=== PATIENT | male | born 1990 | race Two or more races ===

== ENCOUNTER 2025-01-03 13:31 | Emergency (ER) | payer MEDICAID, OTHER ==
[~2025-01-03] VITALS: Ht 175.3 cm; Wt 109.0 kg
--- NOTE | 2025-01-03 14:13 | ED.PDOC ---
History of Present Illness HPI Comments 34-year-old male brought in by EMS for evaluation of near syncope. 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 He was evaluated by a co-worker, who gave him some liquid IV to drank. He states he transiently felt better, h owever he became anxious and still felt somewhat lightheaded, so went across the street to the fire station for further evaluation. At the fire station, his blood pressure was reportedly in the low 100s over 60s, and he appeared pale. EMS administered a L of IV fluids, which improved his blood pressure to 122/71. On arrival to ER, patient states he feels anxious, however he is no longer feeling lightheaded. He denies any vision changes, focal weakness, recent illness, shortness of breath or chest pain. Chief Complaint: Syncope Time Seen by MD: 13:40 Reviewed Notes: Medications, Allergies Allergies: Coded Allergies: NO KNOWN ALLERGIES (Unverified , 01/03/25) Information Source: Patient Mode of Arrival: EMS Severity: Moderate Timing: Minutes Duration: Since onset Prehospital treatment: 12 Lead EKG, Adoption Social Worker, IVF Past Medical History PAST MEDICAL HISTORY: Anxiety Surgical History: Denies all surgeries Family History Family History: Reviewed,noncontributory to illness Social History Smoker: Other (Vapes) Alcohol: Denies ETOH Use Drugs: Denies Drug Use Lives In: Home Constitutional: denies: chills, diaphoresis, fatigue, fever, malaise, sweats, weakness, others EENTM: denies: blurred vision, double vision, ear bleeding, ear discharge, ear drainage, ear pain, ear ringing, eye pain, eye redness, hearing loss, mouth pain, mouth swelling, nasal discharge, nose bleeding, nose congestion, nose pain, photophobia, tearing, throat pain, throat swelling, voice changes, others Respiratory: denies: cough, hemoptysis, orthopnea, SOB at rest, shortness of breath, SOB with excertion, stridor, wheezing, others Cardiovascular: reports: syncope; denies: chest pain, dizzy spells, diaphoresis, Dyspnea on exertion, edema, irregular heart beat, left arm pain, lightheadedness, palpitations, PND, others Gastrointestinal: denies: abdomen distended, abdominal pain, blood streaked bowels, constipated, diarrhea, dysphagia, difficulty swallowing, hematemesis, melena, nausea, poor appetite, poor fluid intake, rectal bleeding, rectal pain, vomiting, others Genitourinary: denies: burning, dysuria, flank pain, frequency, hematuria, incontinence, penile discharge, penile sore, pain, testicle pain, testicle swelling, urgency, others Neurological: denies: dizziness, fainting, headache, left sided numbness, left sided weakness, numbness, paresthesia, pre-existing deficit, right sided numbness, right sided weakness, seizure, speech problems, tingling, tremors, weakness, others Musculoskeletal: denies: back pain, gout, joint pain, joint swelling, muscle pain, muscle stiffness, neck pain, others Integumetry: denies: bruises, change in color, change in hair/nails, dryness, laceration, lesions, lumps, rash, wounds, others Allergic/Immunocompromised: denies: Difficulty Healing, Frequent Infections, Hives, Itching, others Hematologic/Lymphatic: denies: anemia, blood clots, easy bleeding, easy bruising, swollen glands, others Endocrine: denies: excessive hunger, excessive sweating, excessive thirst, excessive urination, flushing, intolerance to cold, intolerance to heat, unexplained weight gain, unexplained weight loss, others Psychiatric: reports: anxiety; denies: bipolar disorder, depression, hopeless, panic disorder, schizophrenia, sleepless, suicidal, others All Other Systems: Reviewed and Negative Physical Exam General Appearance: No Apparent Distress HEENT: Other (Pupils and face symmetric. Moist mucous membranes.) Neck: Full Range of Motion, Normal Inspection Respiratory: Lungs Clear, No Accessory Muscle Use, No Respiratory Distress, Normal Breath Sounds Cardiovascular: No Edema, No JVD, Regular Rate/Rhythm Breast Exam: Deferred Gastrointestinal: Non Tender, Soft Genitalia: Deferred Pelvic: Deferred Rectal: Deferred Extremities: Normal inspection, Normal range of motion, Non-tender, No pedal edema Neurologic: Alert (Oriented x4), Normal Affect, Other (Ambulatory. Anxious.) Cerebellar Function: NOT DONE Reflexes: NOT DONE Skin: Dry, Normal Color, Warm Lymphatic: NOT DONE Was a procedure done? Was a procedure done?: No EKG EKG : Comments Sinus rhythm, rate 91, normal intervals, normal axis, Q-waves in lead 3 and AVF, nonspecific T change. Differential Dx Considerations may include: Anxiety, hypovolemia/orthostasis, hypoglycemia, electrolyte imbalance, arrhythmia, DE, PE, among others X-Ray, Labs, Meds, VS Vital Signs Date Time Temp Pulse Resp B/P (MAP) Pulse Ox O2 Delivery O2 Flow Rate FiO2 01/03/25 15:38 98.3 78 16 125/68 (87) 97 98.3 01/03/25 13:37 91 01/03/25 13:35 99.1 82 17 122/71 97 99.1 Lab Test 01/03/25 14:52 01/03/25 14:07 Range/Units Troponin I High Sensitivity < 3 L < 3 L </=54 ng/L White Blood Count 8.8 4.4-10.8 10^3/uL Red Blood Count 5.05 4.5-5.90 10^6/uL Hemoglobin 15.5 13.5-17.5 g/dL Hematocrit 45.8 41.0-53.0 % Mean Corpuscular Volume 90.6 80.0-100.0 fL Mean Corpuscular Hemoglobin 30.6 28.0-32.0 pg Mean Corpuscular Hemoglobin Concent 33.8 32.0-36.0 g/dL Red Cell Distribution Width 13.6 11.8-14.3 % Platelet Count 190 140-450 10^3/uL Mean Platelet Volume 10.1 6.9-10.8 fL Neutrophils (%) (Auto) 80.8 H 37.0-80.0 % Lymphocytes (%) (Auto) 12.7 10.0-50.0 % Monocytes (%) (Auto) 5.6 0.0-12.0 % Eosinophils (%) (Auto) 0.6 0.0-7.0 % Basophils (%) (Auto) 0.3 0.0-2.0 % Neutrophils # (Auto) 7.1 1.6-8.6 10 ^3/uL Lymphocytes # (Auto) 1.1 0.4-5.4 10 ^3/uL Monocytes # (Auto) 0.5 0-1.3 10 ^3/uL Eosinophils # (Auto) 0.1 0-0.8 10 ^3/uL Basophils # (Auto) 0 0-0.2 10 ^3/uL Nucleated Red Blood Cells 0.1 % D-Dimer, Quantitative < 0.19 0.0-0.49 mg/L FEU Sodium Level 138 136-145 mmol/L Potassium Level 3.9 3.5-5.1 mmol/L Chloride Level 104 98-107 mmol/L Carbon Dioxide Level 25 20-31 mmol/L Anion Gap 9 5-15 Blood Urea Nitrogen 18 9-23 mg/dL Creatinine 1.24 0.700-1.30 mg/dL Glomerular Filtration Rate Calc 79 >90 mL/min BUN/Creatinine Ratio 14.5 10.0-20.0 Serum Glucose 113 H 74-106 mg/dL Calcium Level 9.3 8.7-10.4 mg/dL B-Type Natriuretic Peptide 12.29 0-100 pg/mL Current Medications Medications (Trade) Dose Ordered Sig/Saúl Route Start Time Stop Time Status Last Admin Sodium Chloride 1,000 ml @ 1,000 mls/hr Q1H ONCE IV 01/03/25 14:00 01/03/25 14:59 DC 01/03/25 14:18 Lorazepam (Ativan Inj) 0.5 mg ONCE ONCE IV 01/03/25 14:00 01/03/25 14:01 DC 01/03/25 14:19 PROCEDURE(s): CXRP - CHEST PORTABLE REASON: near syncope ORDER NUMBER(s): [id number], ACCESSION NUMBER(s): [id number] CHEST RADIOGRAPH Indication: near syncope Technique: Single frontal view of the chest was obtained COMPARISON: None FINDINGS: Lines and Tubes: None Lungs: Clear Pleura: No effusion. No pneumothorax. Cardiomediastinal contours: Unremarkable Bones: Unremarkable IMPRESSION: No acute disease. X-Ray, Labs, Meds, VS Comment 34-year-old male with a history of anxiety brought in by EMS complaining of near syncope type symptoms Vitals unremarkable Exam remarkable for anxiety Rhythm strip independently interpreted by me: Sinus rhythm, rate 81, no ectopy. Chest x-ray unremarkable CBC, basic metabolic panel, BNP, 2 serial troponins and D-dimer unremarkable Patient treated with the following in the ED: 1 L 0.9 normal saline IV bolus, Ativan 0.5 mg IV On re-evaluation, patient states he feels well. Vitals were stable. He is neurologically intact. Hospitalization was considered, however patient had rapid improvement of symptoms with treatment in the ED, and I no longer feel hospitalization is necessary. Patient now appears stable for discharge with close outpatient follow-up with his primary physician. Rx hydroxyzine Time of 1ST Reevaluation: 14:10 Reevaluation 1ST: Unchanged Patient Education/Counseling: Diagnosis, Treatment, Need For Follow Up Family Education/Counseling: Diagnosis, Treatment, Need For Follow Up SEPSIS Sepsis Screen Date sepsis recognized/suspect: Jan 03, 2025 Time Sepsis recognized/suspect: 1334 Recent Procedure: No On Antibiotic Therapy: No Respiratory Rate >20: No Heart Rate >90: No Temp<36 C (96.8 F) or >38.3 C: No SBP <90 or MAP <65 mmHG: No New Acute Mental Status Change: No Is the patient on CPAP, BIPAP,: No Physician Orders Electrocardigram (01/03/25 13:42) Chest Portable (01/03/25 13:46) Vital Signs Date Time Temp Pulse Resp B/P (MAP) Pulse Ox O2 Delivery O2 Flow Rate FiO2 01/03/25 15:38 98.3 78 16 125/68 (87) 97 98.3 01/03/25 13:37 91 01/03/25 13:35 99.1 82 17 122/71 97 99.1 Laboratory Tests Test 01/03/25 14:07 White Blood Count 8.8 10^3/uL (4.4-10.8) Medications Medications Dose Ordered Sig/Saúl Route Start Time Stop Time Status Last Admin Dose Admin Lorazepam 0.5 mg ONCE ONCE IV 01/03/25 14:00 01/03/25 14:01 DC 01/03/25 14:19 Sodium Chloride 1,000 ml @ 1,000 mls/hr Q1H ONCE IV 01/03/25 14:00 01/03/25 14:59 DC 01/03/25 14:18 Departure 1 Departure Time of Disposition: 15:50 Impression: Primary Impression: Pre-syncope Additional Impression: Anxiety Disposition: 01 HOME / SELF CARE / HOMELESS Condition: Stable Additional Instructions: Your blood tests, including screening tests for heart attack, heart failure and blood clots, were unremarkable. Your EKG was unremarkable. Your chest x-ray was normal. I have prescribed medication for anxiety. Follow-up with your primary doctor in 1-2 days. Return to ER for persistent or worsening symptoms. e-Prescriptions Hydroxyzine HCl (Hydroxyzine Hydrochloride) 50 Mg Tab 50 MG PO Q8HP PRN, #30 TAB PRN anxiety Prov: JOSÉ MIGUEL TINSLEY MD 01/03/25 Discharged With: Relative Critical Care Note Critical Care Time?: No Stability Stability form required: No Heart Score Heart Score: Heart Score Response (Comments) Value History N/A 0 EKG N/A 0 Age N/A 0 Risk Factors N/A 0 Troponin N/A 0 Total 0 I personally scribed for JOSÉ MIGUEL TINSLEY MD ([email or web address]) on 01/03/25 at 14: 12. Electronically submitted by [facility] ([email or web address]). JOSÉ MIGUEL TINSLEY MD Jan 03, 2025 14:12
[2025-01-03] MEDS: SODIUM CHLORIDE 0.9% 1,000 ML IV ONE (14:18)
[2025-01-03] MEDS: LORazepam 2MG/ML-1ML VIAL IV ONE (14:19)
--- NOTE | 2025-01-03 14:19 | DVH ---
CHEST RADIOGRAPH Indication: near syncope Technique: Single frontal view of the chest was obtained COMPARISON: None FINDINGS: Lines and Tubes: None Lungs: Clear Pleura: No effusion. No pneumothorax. Cardiomediastinal contours: Unremarkable Bones: Unremarkable IMPRESSION: No acute disease.
[2025-01-03 14:28] LABS: Hematocrit 45.8 % (41.0-53.0); Hemoglobin 15.5 g/dL (13.5-17.5); Mean Corpuscular Hemoglobin 30.6 pg (28.0-32.0); Mean Corpuscular Volume 90.6 fL (80.0-100.0); Nucleated Red Blood Cells % 0.1 %
[2025-01-03 14:33] LABS: Chloride 104 mmol/L (98-107); Potassium 3.9 mmol/L (3.5-5.1); Sodium 138 mmol/L (136-145)
[2025-01-03 14:34] LABS: Anion Gap 9 (5-15); Carbon Dioxide 25 mmol/L (20-31)
[2025-01-03 14:35] LABS: Calcium 9.3 mg/dL (8.7-10.4)
[2025-01-03 14:39] LABS: BUN/Creatinine Ratio 14.5 (10.0-20.0); Blood Urea Nitrogen 18 mg/dL (9-23)
[2025-01-03 14:45] LABS: Glucose 113 mg/dL (74-106)
[2025-01-03 15:25] VITALS: PULSE 78; RESP 16; O2SAT 97
[2025-01-03 15:38] VITALS: BP 125/68; PULSE 78; RESP 16; TEMP 98.3; O2SAT 97
[2025-01-03] MEDS ORDERED: HYDR50TA32 PO (15:52)
--- NOTE | 2025-01-07 10:34 | ECG ---
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
== END 2025-01-03 16:55 | disposition home or self-care (01) ==
LOC: ER 13:31 → EDBD 13:31 → ER 16:55
DX: F41.9 Anxiety disorder, unspecified (principal); R55 Syncope and collapse
CPT/HCPCS: 36415; 71045; 80048; 82947; 83880; 84484; 85025; 85379; 93005; 96361; 96374; 99285; J2060; J7030